=== PATIENT | male | born 1965 | race Caucasian/White ===

== ENCOUNTER 2023-12-17 10:58 | Outpatient (CLI) | payer BC | END 2023-12-17 10:59 | disposition home or self-care (01) | LOC: ULT 10:58 | PROVIDERS: ATTEND Family Medicine | DX: R10.11 Right upper quadrant pain (principal); K76.0 Fatty (change of) liver, not elsewhere classified; R16.0 Hepatomegaly, not elsewhere classified | CPT/HCPCS: 76705 ==